=== PATIENT | female | born 1970 | race Two or more races ===

== ENCOUNTER 2021-03-10 20:07 | Inpatient (IN) | payer OTHER ==
[~2021-03-10] VITALS: Ht 165.1 cm; Wt 73.9 kg
--- NOTE | 2021-03-10 20:13 | NUR ---
PATIENT IS RECIEVED SAYING THAT SHE HAS A UTERINE MASS WHICH CASUES HER SEVERE PELVIC PAIN. PATIENT SAYS SHE WILL BE OPERATED ON TOMORROW BY DR. SHERI ABRAMS.
[2021-03-10] MEDS ORDERED: SYNTHROID75 MCG (20:15)
[2021-03-12] MEDS ORDERED: LEVOTHYROXINE88 MCG (16:23)
[2021-03-12] MEDS ORDERED: OPTIMAL D31250 MCG (16:23)
== END 2021-03-13 15:41 | disposition home or self-care (01) | DRG 738 ==
LOC: ER 20:07 → MEDJ 22:50 → SURH 03-12 01:26
PROVIDERS: Obstetrics & Gynecology Gynecologic Oncology; ADMIT Internal Medicine; ATTEND Internal Medicine
PROC: 0UB70ZZ Excision of Bilateral Fallopian Tubes, Open Approach (ICD-10-PCS; 2021-03-11)
PROC: 0UT90ZZ Resection of Uterus, Open Approach (ICD-10-PCS; 2021-03-11)
PROC: 07BD0ZX Excision of Aortic Lymphatic, Open Approach, Diagnostic (ICD-10-PCS; 2021-03-11)
PROC: 07BC0ZX Excision of Pelvis Lymphatic, Open Approach, Diagnostic (ICD-10-PCS; 2021-03-11)
PROC: 0DTU0ZZ Resection of Omentum, Open Approach (ICD-10-PCS; 2021-03-11)
PROC: 30233N1 Transfusion of Nonautologous Red Blood Cells into Peripheral Vein, Percutaneous Approach (ICD-10-PCS; 2021-03-11)
PROC: 3E0F7SF Introduction of Other Gas into Respiratory Tract, Via Natural or Artificial Opening (ICD-10-PCS; 2021-03-11)
PROC: 0UB20ZZ Excision of Bilateral Ovaries, Open Approach (ICD-10-PCS; principal; 2021-03-11 13:00)
DX: C56.1 Malignant neoplasm of right ovary (principal); N80.1 Endometriosis of ovary; N80.0 Endometriosis of uterus; N72 Inflammatory disease of cervix uteri; N94.89 Other specified conditions associated with female genital organs and menstrual cycle; D25.1 Intramural leiomyoma of uterus; D25.2 Subserosal leiomyoma of uterus; D64.89 Other specified anemias; Z20.822 Contact with and (suspected) exposure to COVID-19